=== PATIENT | female | born 1990 | race Caucasian/White ===

== ENCOUNTER 2022-03-11 05:10 | Emergency (ER) | payer MEDICAID ==
[~2022-03-11] VITALS: Ht 160 cm; Wt 81.6 kg
[2022-03-11 06:21] VITALS: BP 112/83
== END 2022-03-11 06:47 | disposition left against medical advice (07) ==
LOC: ER 05:10
DX: K08.89 Other specified disorders of teeth and supporting structures (principal); Z53.21 Procedure and treatment not carried out due to patient leaving prior to being seen by health care provider